=== PATIENT | female | born 1985 | race Caucasian/White ===

== ENCOUNTER 2021-05-21 14:24 | Outpatient (CLI) | payer BC ==
[~2021-05-21] VITALS: Wt 73.4 kg
--- NOTE | 2021-05-21 14:30 | NUR ---
Presents to labor and delivery for vaginal bleeding. States had an office visit today. Says when she was at home came in from outside and went to the bathroom. States had some bleeding on her pad and in the stool. Assessment done, questions offered and answered.
[2021-05-21 15:00] VITALS: BP 110/70; PULSE 81; TEMP 98.9
[2021-05-21] MEDS ORDERED: PRILOSEC 20MG20 MG PO (15:02)
[2021-05-21] MEDS ORDERED: ZOFRAN 4MG T4 MG/TAB (15:04)
[2021-05-21] MEDS ORDERED: CELEXA10 MG PO (15:05)
[2021-05-21] MEDS ORDERED: BENTYL 20MG20 MG/TAB PO (15:07)
[2021-05-21] MEDS ORDERED: PRENATAL TABLET PO (15:07)
[2021-05-21] MEDS ORDERED: CALCIUM 600MG+D1 TAB PO (15:07)
--- NOTE | 2021-05-21 15:15 | NUR ---
Rests in bed, alert. Vag exam done. Dilated to one with brownish color mucous on glove. Dr. Jones called about this . States can go home and rest and take tylenol. Says also if any bright red bleeding to call office or hospital.
[2021-05-22] MEDS ORDERED: MOTRIN 800800 MG/TAB PO (19:30)
== END 2021-05-21 16:00 | disposition home or self-care (01) ==
LOC: LDRO 14:24
DX: O46.93 Antepartum hemorrhage, unspecified, third trimester (principal); Z3A.34 34 weeks gestation of pregnancy

== ENCOUNTER 2021-05-22 08:44 | Inpatient (IN) | payer BC ==
[~2021-05-22] VITALS: Ht 157.5 cm; Wt 73.2 kg
[2021-05-22] VITALS (22 sets, daily range): BP systolic 104–149; BP diastolic 58–80; PULSE 75–115; TEMP 98.3
[~2021-05-22 08:44] MED LIST: BENTYL 20MG20 MG/TAB PO; CALCIUM 600MG+D1 TAB PO; CELEXA10 MG PO; PRENATAL TABLET PO; PRILOSEC 20MG20 MG PO; ZOFRAN 4MG T4 MG/TAB
--- NOTE | 2021-05-22 08:50 | NUR ---
Pt arrived on unit ambulatory with concerns for possible ROM. Pt reports feeling a "gush" of fluid at 0700 while in bed and contractions started shortly after feeling the fluid. Pt also reports normal movement. EFM and toco monitors started. Vital signs WNL. SVE by this RN /-2 with amnio-trace inconclusive so ROM+ done and sent to lab.
--- NOTE | 2021-05-22 09:35 | NUR ---
Plan of care and orders from Dr. Vasques reviewed with pt and at the bedside. Both verbalized an understanding, agreed with the plan and states no questions or concerns.
[2021-05-22 10:14] LABS: BASO # 0.1 K/mm3 (0.0-0.2); BASO % 0.3 % (0.0-2.0); EOS # 0.1 K/mm3 (0.0-0.7); EOS % 0.5 % (0.0-4.0); GRAN # 11.1 K/mm3 (1.4-6.5); GRAN % 70.5 % (42.2-75.2); HEMOGLOBIN 11.3 g/dl (12.5-16.0); LYMPH # 3.5 K/mm3 (1.2-3.4); LYMPH % 22.6 % (20.0-51.0); MEAN CELL VOLUME 87 fl (80.0-100.0); MEAN CORPUSCULAR HEMOGLOBIN 31 pg (27-31); MEAN CORPUSCULAR HGB CONC 35 g/dl (33.0-37.0); MEAN PLATELET VOLUME 11.7 fl (7.4-10.4); MONO # 0.9 K/mm3 (0.1-0.6); MONO % 5.5 % (1.7-9.3); PLATELET COUNT 179 K/mm3 (130-400); RED BLOOD COUNT 3.69 M/mm3 (4.10-5.30); REDCELL DISTRIBUTION WIDTH-CV 12.2 % (11.5-14.5)
[2021-05-22 10:18] LABS: HEMATOCRIT 32.1 % (37.0-47.0)
--- NOTE | 2021-05-22 11:11 | NUR ---
1111- Pt sitting up on the edge of the bed for epidural placement. CORNELIO Valdez at the bedside. Time out done. 1113- SPO2 monitor started. EFM intermittently tracing maternal HR as coorelates with SPO2 monitor. 1117- Single shot done per CORNELIO Valdez. See anesthesia record for details. 1125- Assisted pt back to supine position with left wedge. EFM and toco monitors adjusted.
--- NOTE | 2021-05-22 11:45 | NUR ---
1145- Dr. Vasques at the bedside. SVE done . 1215- Pushing instructions reviewed with pt and pushing started. 1235- Orders for pitocin augmentation received and pitocin started. 1300- Dr. Vasques at the bedside and pushing with pt. 1315- This RN remains at the bedside and pushing with pt. 1330- Dr. Vasques at the bedside and pushing with pt. 1408- Dr. Vasques at the bedside. Pt set up for delivery. 1412- of viable male . placed on mom's abdomen. Cords clamped and cut. Care of the given to Nursery RN at the bedside. 1419- of placenta. Pitocin started at 333ml/hr per order and protocol. Fundus firm and lochia WNL.
--- NOTE | 2021-05-22 17:15 | NUR ---
Pt up to the bathroom with standby assist and without complications. Pt was able to void. Melvina-care done. Pt transferred to room 208 but in nursery to see baby.
[2021-05-22] MEDS ORDERED: MOTRIN 800800 MG/TAB PO (19:30)
--- NOTE | 2021-05-22 22:43 | NUR ---
Report received. Plan of care reviewed.
[2021-05-23 01:05] VITALS: BP 105/60; PULSE 72; TEMP 98
[2021-05-23 05:45] VITALS: BP 121/62; PULSE 85; TEMP 97.8
[2021-05-23 08:15] VITALS: BP 103/71; PULSE 83; TEMP 98.5
--- NOTE | 2021-05-23 10:19 | NUR ---
Initial visit attempt; Mom in nursery. Post Anesthesia Room Nurse left card of congratulations and God's blessings with Grandmother who will let her daughter Kenroy know of the availability of Spiritual Care at our hospital.
[2021-05-23 12:15] VITALS: BP 115/74; PULSE 88; TEMP 98.2
[2021-05-23 15:30] VITALS: BP 115/71; PULSE 85; TEMP 98.3
[2021-05-23 21:52] VITALS: BP 114/74; PULSE 84; TEMP 98.2
[2021-05-24] MEDS ORDERED: PERCOCET 325 MG1 TA2 PO (07:20)
[2021-05-24 09:00] VITALS: BP 115/75; PULSE 80; TEMP 97.8
--- NOTE | 2021-05-24 17:10 | NUR ---
Discharge instructions, follow up care and boarder status reviewed. Pt verbalized an understanding, agreed with the plan and states no questions or concerns at this time.
== END 2021-05-24 17:10 | disposition home or self-care (01) | DRG 805 ==
LOC: LDRO 08:44 → LDR 09:12 → OB 09:59 → LDRO 09:59 → LDR 09:59 → OB 19:10
PROVIDERS: Obstetrics & Gynecology; ADMIT Obstetrics & Gynecology
PROC: 10E0XZZ Delivery of Products of Conception, External Approach (ICD-10-PCS; principal; 2021-05-22)
PROC: 0HQ9XZZ Repair Perineum Skin, External Approach (ICD-10-PCS; 2021-05-22)
DX: O43.893 Other placental disorders, third trimester (principal); O60.14X0 Preterm labor third trimester with preterm delivery third trimester, not applicable or unspecified; Z37.0 Single live birth; O70.9 Perineal laceration during delivery, unspecified; Z3A.34 34 weeks gestation of pregnancy; Z23 Encounter for immunization
CPT/HCPCS: J0290; J0702; J2590; J2795; J3105; J7120

== ENCOUNTER → 2021-06-13 | Outpatient (CLI) | payer BC ==
[~2021-06-13] MED LIST changes: +MOTRIN 800800 MG/TAB PO; +PERCOCET 325 MG1 TA2 PO
--- NOTE | 2021-06-13 13:41 | NUR ---
Pt, Kenroy Garcia, presents for outpatient consult with three week old baby boy, Theodore Garcia, for guidance transitioning him from bottle to . Theodore was born at 34 weeks gestation on [birth year] and weighed 5#11.4oz (2590 gms). He was discharged bottle feeding EBM and neosure on 05/28/21 and weighed 5#5oz. Pt has continued with pumping, bottle feeding, and use of 2oz neosure per day. weights are reported to be: 05/29/21 5#6.4 at [facility], 06/06/21 5#10oz at [facility], And today 6#0.6oz (2740 gms) for a gain of 6oz over the last 7 days. Pt reports Theodore drinks 40-80ml EBM 8 or more times per 24 hours. She produces about 13 oz of breastmilk per day and he comsumes 15 oz daily. Pt is instructed on use of cross cradle to compress areola into Theodore's mouth for a deeper latch. After a brief time period swallows were noted, but not sustained for more than about 5 minutes. Similar effort on the second side. Weight gain after nursing bilaterally is 1.1oz (28 gms). Theodore is then fed an additional 1 oz by bottle while pt pumps. POC: Offer breast 1x/day at the time of highest milk supply. At other feedings continue to pump and bottle feed. Continue to provide 2 oz Neosure daily as ordered by human resources analyst. F/u: will be seen by Dr. Hammond in one week, pt to contact this LC with weight and progress plan. Follow up will be based on that information. Questions invited and answered.
== END ==
LOC: LAC 10:06
DX: Z39.1 Encounter for care and examination of lactating mother (principal); Z71.89 Other specified counseling

== ENCOUNTER → 2023-07-06 | Outpatient (CLI) | payer BC | LOC: COL.RAD 12:06 | DX: E05.90 Thyrotoxicosis, unspecified without thyrotoxic crisis or storm (principal) | CPT/HCPCS: A9516-JZ ==

== ENCOUNTER → 2023-08-21 | Outpatient (CLI) | payer BC | LOC: COL.RAD 15:40 | DX: E05.90 Thyrotoxicosis, unspecified without thyrotoxic crisis or storm (principal) ==